=== PATIENT | male | born 1995 | race Caucasian/White ===

== ENCOUNTER 2018-06-08 12:33 | Inpatient (IN) | payer OTHER ==
[~2018-06-08] VITALS: Ht 175.3 cm; Wt 96.1 kg
[~2018-06-08 12:33] MED LIST: ALBUTEROL IH; LEVE500S2 PO
[2018-06-08] MEDS ORDERED: NACL1 PO (13:04)
[2018-06-08] MEDS ORDERED: OXCA300T29 PO (13:04)
[2018-06-08] MEDS ORDERED: ZONI25CA3 PO (13:04)
[2018-06-08] MEDS ORDERED: LORazepam 2 MG TABLET PO ONE (13:45)
[2018-06-08 14:30] LABS: BASOPHILS % (AUTO) 0.5 % (0.0-2.0); LYMPHOCYTES # (AUTO) 1.3 K/uL (1.0-4.8); LYMPHOCYTES % (AUTO) 8.2 % (22.0-44.0); MEAN CORPUSCULAR HEMOGLOBIN 29.4 pg (26.0-34.0); MEAN CORPUSCULAR HGB CONC 34.7 G/dL (31.0-37.0); MEAN CORPUSCULAR VOLUME 85 fL (80-100); MONOCYTES # (AUTO) 1.3 K/uL (0.1-1.0); MONOCYTES % (AUTO) 8.3 % (2.0-9.0); NEUTROPHILS # (AUTO) 12.6 K/uL (1.8-7.7); PLATELET COUNT (AUTO) 321 K/uL (150-450); RED BLOOD CELL COUNT(AUTO) 5.78 MIL/uL (4.50-5.90); RED CELL DISTRIBUTION WIDTH 13.7 % (11.5-14.5)
[2018-06-08 14:46] LABS: ALANINE AMINOTRANSFERASE 108 U/L (12-78); ALBUMIN 3.9 g/dL (3.4-5.0); ALKALINE PHOSPHATASE 115 U/L (46-116); ANION GAP 8 mmol/L (8-16); ASPARTATE AMINOTRANSFERASE 36 U/L (15-37); BILIRUBIN,TOTAL 0.2 mg/dL (0.1-1.0); CALCIUM, TOTAL 8.6 mg/dL (8.8-10.5); CARBON DIOXIDE 26 mmol/L (22-29); CHLORIDE 104 mmol/L (98-107); CREATININE 0.83 mg/dL (0.60-1.30); GLOMERULAR FILTR. RATE CALC > 60 mL/min (>60); GLUCOSE,RANDOM 103 mg/dL (70-110); SODIUM SERUM 138 mmol/L (136-145); TOTAL PROTEIN, SERUM 7.9 g/dL (6.4-8.2); UREA NITROGEN, BLOOD 11 mg/dL (7-18)
[2018-06-08 14:48] LABS: POTASSIUM 2.7 mmol/L (3.5-5.1)
[2018-06-08] MEDS ORDERED: LACTULOSE 20 GM/30 ML SOLUTION UDCUP PO ONE (15:00)
[2018-06-08] MEDS: POTASSIUM CHL 10 MEQ/WATER 50 ML IV SCH ×4 (15:14→20:08)
[2018-06-08] MEDS ORDERED: ONDANSETRON HCL 4 MG/2 ML VIAL IVP PRN (15:15)
[2018-06-08] MEDS ORDERED: ACETAMINOPHEN 325 MG TABLET PO PRN (15:15)
[2018-06-08 16:46] VITALS: BP 137/93
[2018-06-08] MEDS ORDERED: POTASSIUM CHLORIDE 10% 40 MEQ/30 ML LIQUID UDCUP PO ONE (17:00)
[2018-06-08] MEDS ORDERED: SODIUM CHLORIDE 0.9% 1,000 ML IV ONE (17:16)
[2018-06-08 20:00] VITALS: BP 148/87
[2018-06-08] MEDS: ZONISAMIDE 25 MG CAPSULE PO SCH (20:10)
[2018-06-08] MEDS: OXCARBAZEPINE 300 MG/5 ML PO SCH (20:13)
[2018-06-09 04:00] VITALS: BP 141/86
[2018-06-09 08:00] VITALS: BP 144/88
[2018-06-09] MEDS: ZONISAMIDE 25 MG CAPSULE PO SCH (08:41)
[2018-06-09] MEDS: OXCARBAZEPINE 300 MG/5 ML PO SCH (08:43)
[2018-06-09 11:23] VITALS: BP 115/87
== END 2018-06-09 12:15 | disposition home or self-care (01) | DRG 425 ==
LOC: EMS 12:35 → 6N 15:10
PROVIDERS: ADMIT Hospitalist; ATTEND Hospitalist
DX: E87.6 Hypokalemia (principal); F84.0 Autistic disorder; G40.909 Epilepsy, unspecified, not intractable, without status epilepticus; Z28.21 Immunization not carried out because of patient refusal
CPT/HCPCS: 83735; 84132; 90686; 96365; G0378; J3480; J7030

== ENCOUNTER 2023-01-12 16:38 | Emergency (ER) | payer OTHER ==
[~2023-01-12] VITALS: Ht 175.3 cm; Wt 77.3 kg
[~2023-01-12 16:38] MED LIST changes: -ALBUTEROL IH; -LEVE500S2 PO; +NACL1 PO; +OXCA300T70 PO; +ZONI25CA PO
[2023-01-12 16:47] VITALS: BP 129/92
[2023-01-12] MEDS ORDERED: ALBU18HF12 IH (16:52)
[2023-01-12] MEDS ORDERED: MOXI3DRO27 OS ×2 (17:40→18:07)
[2023-01-12] MEDS ORDERED: PRED15SO74 PO ×2 (17:40→18:07)
[2023-01-12] MEDS ORDERED: PrednisoLONE SOD PHOSPHATE 15 MG/5 ML SOLUTION UDCUP PO ONE (17:45)
== END 2023-01-12 18:25 | disposition home or self-care (01) ==
LOC: EMS 16:39
DX: J45.909 Unspecified asthma, uncomplicated (principal); F84.0 Autistic disorder; Z91.013 Allergy to seafood
CPT/HCPCS: 99283; J7510